=== PATIENT | female | born 1975 | race African-American/Black ===

== ENCOUNTER → 2023-10-02 10:38 | Outpatient (REF) | payer OTHER, SELFPAY ==
[2023-10-02 10:49] LABS: % Eosinophils 7.7 % (0-6); % Immature Granulocytes 0.2 % (0-0.5); % Lymphocytes 21.8 % (20.5-51.1); % Monocytes 7.3 % (1.7-9.3); Absolute Basophils 0.1 10^3/uL (0-0.2); Absolute Eosinophils 0.4 10^3/uL (0-0.7); Absolute Lymphocytes 1.1 10^3/uL (1.2-3.4); Absolute Monocytes 0.4 10^3/uL (0.1-0.6); Absolute Neutrophils 3.1 10^3/uL (1.4-6.5); Mean Corpuscular Hgb 16.9 pg (27.0-31.0); Mean Corpuscular Volume 60.2 fL (81.0-99.0); Platelet Count 609 10^3/uL (130-400); Red Blood Cell Count 4.15 10^6/uL (4.20-5.40); Red Cell Dist. Width 24.7 % (11.5-14.5)
== END ==
LOC: OIDL 10:38
PROVIDERS: ATTENDING PHYSICIAN Internal Medicine Hematology & Oncology
DX: D50.9 Iron deficiency anemia, unspecified (principal)
CPT/HCPCS: 85025